=== PATIENT | male | born 1985 | race Caucasian/White ===

== ENCOUNTER 2019-04-21 10:54 | Emergency (ER) | payer SELFPAY ==
[~2019-04-21] VITALS: Ht 170.2 cm; Wt 84.3 kg
[~2019-04-21 10:54] MED LIST: BEN25 PO; CHLO10CA6 PO; MULTI PO; THIA100T56 PO
[2019-04-21 11:02] VITALS: Ht 170.2 cm; Wt 84.3 kg
[2019-04-21 12:42] VITALS: BP 142/87; PULSE 82; RESP 18
== END 2019-04-21 12:46 | disposition home or self-care (01) ==
LOC: FTE 10:54
DX: R20.0 Anesthesia of skin (principal); R25.3 Fasciculation
CPT/HCPCS: 80053; 85025; 99283